=== PATIENT | male | born 2000 | race Hispanic/Latino ===

== ENCOUNTER 2020-02-02 19:18 | Inpatient (IN) | payer OTHER ==
[~2020-02-02] VITALS: Ht 172.7 cm; Wt 82.4 kg
[2020-02-02] MEDS ORDERED: LIDOCAINE HCL 1% 20 ML VIAL ONE (19:59)
[2020-02-02] MEDS ORDERED: OCTYL 2-CYANOACRYLATE 1 EACH TP ONE (19:59)
[2020-02-02] MEDS ORDERED: CEFAZOLIN SODIUM 1 GM VIAL ONE (21:23)
[2020-02-02 21:40] LABS: BASOPHILS % (AUTO) 0.3 % (0.0-5.0); EOSINOPHILS % (AUTO) 1.6 % (0.0-8.0); HEMATOCRIT 43.2 % (42-54); MEAN CORPUSCULAR HEMOGLOBIN 29.1 pg (27.0-33.0); MEAN CORPUSCULAR HGB CONC 33.8 g/dL (32.0-36.0); MEAN CORPUSCULAR VOLUME 86.2 fL (80-100); MONOCYTES % (AUTO) 5.4 % (3.0-13.0); NEUTROPHILS % (AUTO) 73.1 % (40.0-77.0); PLATELET COUNT (AUTO) 356 K/uL (130-400); RED BLOOD CELL COUNT(AUTO) 5.01 MIL/uL (4.50-6.20); RED CELL DISTRIBUTION WIDTH 12.2 % (11.0-15.5); WHITE BLOOD COUNT (AUTO) 12.3 K/uL (4.8-10.8)
[2020-02-02 21:50] LABS: CREATININE 0.6 mg/dL (0.5-1.5); POTASSIUM 3.9 mmol/L (3.5-5.1)
[2020-02-02 21:53] LABS: INR 0.91 (0.85-1.15); PARTIAL THROMBOPLASTIN TIME 29.6 SEC (26.3-35.5); PROTHROMBIN TIME 9.9 SEC (9.6-11.6)
[2020-02-03] VITALS (27 sets, daily range): BP systolic 106–139; BP diastolic 67–92
--- NOTE | 2020-02-03 00:10 | NUR ---
ADMITTED PATIENT TRANSFERRED PT FROM ED BY NURSE. PT'S MOTHER AT BEDSIDE. PT AWAKE, ALERT, ORIENTED. PT DEAF, MOTHER INTERPRETS SIGN LANGUAGE FOR THE PATIENT. RIGHT HAND WRAPPED WITH KERLEX GAUZE. SIGHT ACTIVELY BLEEDING. OBSERVED NO DISTRESS. SEE ASSESSMENT FOR PHYSICAL FINDINGS. NO C/O PAIN AT THIS TIME. REINFORCED NPO STATUS. PT'S MOTHER- LORRIE STONE- SIGNED THE ADMISSION PACKET. ADMISSION EDUCATION PROVIDE TO PT AND FAMILY. BED LOCKED AND IN LOWEST POSITION. CALL LIGHT WITHIN REACH.
[2020-02-03] MEDS ORDERED: ACETAMINOPHEN-CODEINE 300/30MG TAB PO PRN (01:00)
[2020-02-03] MEDS ORDERED: MORPHINE SULFATE 2 MG/ML 1ML SYG IVP PRN (01:00)
[2020-02-03] MEDS: CEFAZOLIN SODIUM 1 GM VIAL IVP SCH ×3 (03:30→19:30)
[2020-02-03] MEDS ORDERED: CEFAZOLIN SODIUM 1 GM VIAL ONE ×2 (03:56→08:46)
[2020-02-03] MEDS ORDERED: LACTATED RINGERS 1000ML 1,000 ML IV ONE (07:49)
[2020-02-03] MEDS ORDERED: LIDOCAINE PF 2% 5ML ABBOJECT ONE (08:15)
[2020-02-03] MEDS ORDERED: SUCCINYLCHOLINE CHLORIDE 20 MG/ML 10 ML VIAL ONE (08:15)
[2020-02-03] MEDS ORDERED: ONDANSETRON HCL 4 MG/2 ML VIAL ONE ×2 (08:16→09:38)
[2020-02-03] MEDS ORDERED: MIDAZOLAM HCL 1 MG/ML 2ML VIAL ONE (08:16)
[2020-02-03] MEDS ORDERED: ROCURONIUM 10MG/1ML SYR 10 MG/ML ML ONE (08:17)
[2020-02-03] MEDS ORDERED: FENTANYL CITRATE PF 50 MCG/1 ML 2ML VIAL ONE (08:17)
[2020-02-03] MEDS ORDERED: PROPOFOL 10 MG/ML 20ML VIAL IV ONE (08:17)
[2020-02-03] MEDS ORDERED: BUPIVACAINE/PF 0.25% 30ML VIAL IJ ONE (08:47)
[2020-02-03] MEDS ORDERED: GLYCOPYRROLATE 1 MG/5 ML SYRINGE ONE (09:06)
[2020-02-03] MEDS ORDERED: NEOSTIGMINE 5MG/5ML SYR IV ONE (09:06)
[2020-02-03] MEDS ORDERED: MEPERIDINE-PF 25 MG/ML SYG ONE ×2 (09:34→09:43)
[2020-02-03] MEDS ORDERED: KETOROLAC TROMETHAMINE 30MG/ML ONE (09:34)
[2020-02-03] MEDS ORDERED: MORPHINE SULFATE 4 MG/1ML SYG ONE (09:52)
--- NOTE | 2020-02-03 10:20 | NUR ---
Received report, s/p Repair of rt thumb with pinning. Patient alert, oriented, sleepy. Procedure performed under general anesthesia. Dressing dry, per s/p report , nylon sutures, dermabond, wrapped in kerlix. Sling to rt arm. Post op vitals initiated. Patient denies pain, mother at bedside assisting with communication as patient deaf. Bed low, locked, call koch in reach.
--- NOTE | 2020-02-03 13:30 | NUR ---
Patient's mother stated that patient coughed and a small amount of dark blood was spit up. Notified patient's mother that irritation can occur when patient under general anesthesia from tube insertion and will continue to monitor for any complications and to report if continues. Patient did wake to eat lunch and has been sleeping since. Vital signs stable, no signs of respiratory distress. Patient's mother reports patient has not complained of any pain at this time, just groggy and sleeping. Bed low locked, call koch within reach.
--- NOTE | 2020-02-03 16:30 | NUR ---
Patient awake, ate dinner without complication. Mother, who communicates for patient as patient is deaf and mother is able to sign to patient, asked about pain level. Patient did indicate with head nod that pain present. Dressing to rt arm clean and dry, rt arm in sling. Will administer Morphine per physician order for moderate pain level.
[2020-02-04 03:16] VITALS: BP 123/96
[2020-02-04] MEDS: CEFAZOLIN SODIUM 1 GM VIAL IVP SCH ×2 (03:29→12:00)
[2020-02-04 07:43] VITALS: BP 134/85
[2020-02-04 11:54] VITALS: BP 131/78
--- NOTE | 2020-02-04 13:59 | NUR ---
Discharge instructions, prescribed medications, dressing care and follow up appointments reviewed with patient. Explained to mother to make sure dressing stays dry, do not remove dressing until sees Dr. Stearns on Thursday, February 06, 2020 at 8:00 am.Mother signed instructions to patient due to deafness. Patient nodded head up and down in agreement. Mother verbalized understanding. PIV to LAC removed, bleeding controlled and dressing applied. Mother assisted to get dressed. Patient assisted to emergency exit via wheelchair, accompanied by mother, patient and mother left in private vehicle home.
--- NOTE | 2020-02-04 17:14 | NUR ---
INITIAL: Met w pt and mother this am to discuss dcp. Per pt's mother, pt is only able to communicate via sign language but in sinhala. She mentions that pt lives w her and his brother. Prior to admission pt was independent w ambulation and ADLs. He does not own any DME or receive any type of services. Pt works @ [employer] in [employer]. Per pts mom dcp is for pt to [place] at [place]. She mentions that she will be able to assist him as needed. CM to continue to follow and wait for Md recommendations. Addendum: 02/04/20 at 1718 by DAPHNE MARKHAM Amended: Links added.
== END 2020-02-04 14:10 | disposition home or self-care (01) | DRG 909 ==
LOC: EDH 19:18 → EDHIP 20:40 → 3BH 02-03 00:04
PROVIDERS: ADMIT Surgery Plastic and Reconstructive Surgery; ATTEND Surgery Plastic and Reconstructive Surgery
PROC: 0HDQXZZ Extraction of Finger Nail, External Approach (ICD-10-PCS; 2020-02-03)
PROC: 0PBS0ZZ Excision of Left Thumb Phalanx, Open Approach (ICD-10-PCS; principal; 2020-02-03 09:00)
PROC: 0PH Upper Bones, Insertion (ICD-10-PCS; 2020-02-03 09:00)
DX: S68.011A Complete traumatic metacarpophalangeal amputation of right thumb, initial encounter (principal); W26.8XXA Contact with other sharp object(s), not elsewhere classified, initial encounter; Y93.G3 Activity, cooking and baking; Y92.098 Other place in other non-institutional residence as the place of occurrence of the external cause; Y99.8 Other external cause status
CPT/HCPCS: 36415; 73140; 80048; 85025; 85610; 85730; A4565; G0378; J0330; J0690; J1885; J2001; J2175; J2250; J2270; J2405; J2704; J2710; J3010; J3490; J7120